=== PATIENT | male | born 1985 ===

== ENCOUNTER 2018-07-09 17:36 | Emergency (ER) | payer OTHER ==
[~2018-07-09] VITALS: Ht 165.1 cm; Wt 79.5 kg
[2018-07-09] MEDS ORDERED: PRED20TA PO (20:34)
[2018-07-09 21:05] VITALS: BP 140/96
== END 2018-07-09 21:07 | disposition home or self-care (01) ==
LOC: ER 17:37
DX: R20.2 Paresthesia of skin (principal); Z79.899 Other long term (current) drug therapy
CPT/HCPCS: 99283